=== PATIENT | male | born 1950 | race Caucasian/White ===

== ENCOUNTER → 2022-08-29 | Outpatient (CLI) | payer MEDICARE, OTHER ==
[~2022-08-29] MED LIST: CATHETER FLUSH 10 ML SYR IVP PRN
--- NOTE | 2022-08-30 14:19 | Diagnostic Imaging Report ---
Indication: Initial staging of prostate carcinoma. Patient was administered 11.0 mCi of F-18 clarify and imaging was performed from the top skull to mid thighs. Noncontrast CT was also performed for attenuation correction and anatomic correlation. No prior studies are available for comparison. There is physiologic physiologic activity within the lacrimal glands and salivary glands. Head and neck are otherwise unremarkable. No abnormal uptake within the thorax is identified. There is physiologic activity in the gastrointestinal and genitourinary tract. There is an intense focus of uptake involving the inferior and right aspect of the prostate, perhaps patient's known prostate malignancy. No other areas of abnormal uptake are identified. IMPRESSION: Prostate uptake, as described. No other abnormality is seen. Dictated by: Dictated on workstation # [id number]
== END ==
LOC: RAD 12:15
PROVIDERS: ATTEND Radiology Radiation Oncology
DX: C61 Malignant neoplasm of prostate (principal)
CPT/HCPCS: 78815; A9595

== ENCOUNTER 2022-09-05 09:36 | Outpatient (RCR) | payer MEDICARE, OTHER | END 2022-09-12 | disposition home or self-care (01) | LOC: ONC 09:36 | PROVIDERS: ATTEND Radiology Radiation Oncology | DX: C61 Malignant neoplasm of prostate (principal); E78.00 Pure hypercholesterolemia, unspecified | CPT/HCPCS: 99205 ==

== ENCOUNTER 2022-09-28 10:17 | Outpatient (RCR) | payer MEDICARE, OTHER ==
[2022-10-13] MEDS ORDERED: LEUPROLIDE 22.5 MG SYRINGE (ELIGARD) SQ SCH (13:30)
== END 2022-10-13 | disposition home or self-care (01) ==
LOC: ONC 10:17
PROVIDERS: ATTEND Internal Medicine Hematology & Oncology
DX: C61 Malignant neoplasm of prostate (principal)
CPT/HCPCS: 99204

== ENCOUNTER → 2022-12-13 | Outpatient (CLI) | payer MEDICARE, OTHER ==
[~2022-12-13] VITALS: Ht 172.7 cm; Wt 86.4 kg
[~2022-12-13] MED LIST changes: +ASPI-1238 PO; +ATOR80TA76 PO; -CATHETER FLUSH 10 ML SYR IVP PRN; +DORZ10DR27 OP; +LATA1OIL MC
== END | disposition home or self-care (01) ==
LOC: PREOP 10:53
PROVIDERS: ATTEND Specialist
DX: Z01.818 Encounter for other preprocedural examination (principal)

== ENCOUNTER 2022-12-21 07:21 | Day surgery (SDC) | payer MEDICARE, OTHER ==
[~2022-12-21] VITALS: Ht 172.7 cm; Wt 86.4 kg
[2022-12-21] VITALS (10 sets, daily range): BP systolic 107–150; BP diastolic 65–88
[2022-12-21] MEDS ORDERED: LACTATED RINGERS 1,000 ML 1,000 ML IV PRN (07:30)
[2022-12-21] MEDS ORDERED: fentaNYL INJECTION 100 MCG/2 ML VIAL ONE (08:23)
[2022-12-21] MEDS ORDERED: SEVOFLURANE (ULTANE) 15 ML INHAL SOLN ONE (08:30)
[2022-12-21] MEDS ORDERED: proPOfol INJECTION 200 MG/20 ML VIAL IV ONE (08:30)
[2022-12-21] MEDS ORDERED: LIDOCAINE PF 2% 5 ML VIAL ONE (08:30)
[2022-12-21] MEDS ORDERED: dexAMETHasone INJ 10 MG/ML 1 ML VIAL ONE (08:30)
[2022-12-21] MEDS ORDERED: ONDANSETRON INJECTION 4 MG/2 ML (SDV) ONE (08:30)
--- NOTE | 2022-12-21 09:04 | Progress Note-Pre Operative ---
Pre-Operative Progress Note Date of Available H&P: Dec 14, 2022 Date H&P Reviewed: Dec 21, 2022 Time H&P Reviewed: 08:45 History & Physical: H&P Reviewed, No changes noted Pre-Operative Diagnosis: Prostate cancer Janie REID MD Dec 21, 2022 09:04
--- NOTE | 2022-12-21 09:21 | Progress Note-Post Operative ---
Post-Operative Progess Note Surgeon (s)/Reclaimer (s) Surgeon Janie REID MD Reclaimer n/a Pre-Operative Diagnosis Prostate cancer Post-Operative Diagnosis same Post-Op Procedure Note Date of Procedure: Dec 21, 2022 Name of Procedure Performed: Transperineal placement of gold fiducial anchor markers with TRUS guidance Transperineal injection of the absorbable prostate-rectal spacer using the [employer] [place] Virgie system with TRUS guidance Description & Findings Description and Findings: n/a Anesthesia Type General Estimated Blood Loss minimal Packing none. Specimen(s) collected/removed None Janie REID MD Dec 21, 2022 09:21
--- NOTE | 2022-12-21 10:57 | Anesthesia-General Post-Op ---
General Patient Condition Mental Status/LOC: Same as Preop Cardiovascular: Satisfactory Nausea/Vomiting: Absent Respiratory: Satisfactory Pain: Controlled Complications: Absent Post Op Complications Complications None Follow Up Care/Instructions Patient Instructions None needed. Anesthesia/Patient Condition Patient Condition Patient is doing well, no complaints, stable vital signs, no apparent adverse anesthesia problems. No complications reported per nursing. RUSSELL GAINES CRNA Dec 21, 2022 10:57
== END 2022-12-21 11:10 | disposition home or self-care (01) ==
LOC: SDC 07:21
PROVIDERS: ATTEND Specialist
DX: C61 Malignant neoplasm of prostate (principal); Z87.891 Personal history of nicotine dependence
CPT/HCPCS: 55874; 55876; 87081; A4648; C1889

== ENCOUNTER → 2023-01-12 | Outpatient (RCR) | payer MEDICARE, OTHER ==
[2023-01-09 11:29] LABS: BASOPHILS # (AUTO) 0.1 10^3/uL (0.0-0.1); BASOPHILS % (AUTO) 1 % (0-10); EOSINOPHILS # (AUTO) 0.2 10^3/uL (0.0-0.3); EOSINOPHILS % (AUTO) 3 % (0-10); HEMATOCRIT 45 % (40-54); LYMPHOCYTES # (AUTO) 1.2 10^3/uL (1.0-4.0); LYMPHOCYTES % (AUTO) 17 % (12-44); MEAN CORPUSCULAR HEMOGLOBIN 30 pg (25-34); MEAN CORPUSCULAR HGB CONC 33 g/dL (32-36); MEAN CORPUSCULAR VOLUME 90 fL (80-99); MEAN PLATELET VOLUME 11.7 fL (9.0-12.2); MONOCYTES # (AUTO) 0.6 10^3/uL (0.0-1.0); MONOCYTES % (AUTO) 8 % (0-12); NEUTROPHILS # (AUTO) 4.9 10^3/uL (1.8-7.8); NEUTROPHILS % (AUTO) 71 % (42-75); PLATELET COUNT 185 10^3/uL (130-400); WHITE BLOOD COUNT 6.9 10^3/uL (4.3-11.0)
[2023-01-09 11:42] LABS: ALBUMIN 4.2 GM/DL (3.2-4.5); BILIRUBIN,TOTAL 1.5 MG/DL (0.1-1.0); CALCIUM 9.3 MG/DL (8.5-10.1); CREATININE SERUM 0.88 MG/DL (0.60-1.30); POTASSIUM 4.3 MMOL/L (3.6-5.0); TOTAL PROTEIN 7.3 GM/DL (6.4-8.2)
[~2023-01-12] MED LIST changes: +LEUPROLIDE 22.5 MG SYRINGE (ELIGARD) SQ SCH
== END | disposition home or self-care (01) ==
LOC: ONC 01-03 09:05
PROVIDERS: ATTEND Internal Medicine Hematology & Oncology
DX: Z51.0 Encounter for antineoplastic radiation therapy (principal); C61 Malignant neoplasm of prostate
CPT/HCPCS: 36415; 77300; 77301; 77334; 77338; 77385; 80053; 84153; 85025; 96402; 99214